=== PATIENT | male | born 1950 | race Caucasian/White ===

== ENCOUNTER 2016-11-03 12:38 | Inpatient (IN) | payer BC, MEDICARE ==
--- NOTE | ~2016-11-03 | CO ---
Unit #: [id number] #: [id number] Patient: GABRIEL JOHNSON [id number] [facility] [address] [place] [address] [id number] I MR#: [id number] NAME: GABRIEL JOHNSON. ROOM: 83 Age: 66 Sex: M Admission Date: 11/03/2016 : 1950 Attending Physician: Miguel Vidal M.D. Primary Care Physician: Pearl Estrella M.D. Consultation Date: 11/03/2016 CONSULTATION REPORT SUBJECTIVE Gabriel is a 66-year-old, admitted because of his polysubstance abuse. He was seen for his admission H and P on 11/03/2016. He is medical problems to include COPD and high blood pressure were outlined and discussed. Please see H and P dated 11/03/2016. Dictated by... Shu Benítez P.A.-C. for Gissel Elizalde/jono TD: 11/03/2016 18:53 JOB #: [id number] CONSULTATION REPORT Page 1 of 1 X Shu Benítez CONSULTATION REPORT
--- NOTE | ~2016-11-03 | PA ---
Unit #: [id number] #: [id number] Patient: BRENNAN JOHNSON [id number] [place] [address] [id number] I MR#: [id number] NAME: BRENNAN JOHNSON. ROOM: P183 Age: 66 Sex: M Admission Date: 11/03/2016 : 1950 Date of Assessment: 11/04/2016 Attending Physician: Miguel Vidal M.D. Admitting Physician: Miguel Vidal M.D. Primary Care Physician: Pearl Estrella M.D. PSYCHIATRIC ASSESSMENT LOCATION [facility] [address], room #183, bed 1. DATE OF SERVICE 11/04/2016. INFORMANTS The patient and chart, both seem reliable. CHIEF COMPLAINT "I have to stop drinking and using drugs." HISTORY OF PRESENTING ILLNESS This is a 66-year-old white male, admitted with issues of severe alcohol dependency and heroin dependency. The patient apparently has been drinking daily for "many many years" with no period of lasting sobriety for several years. The patient has never been to detox before, but he is reporting that he is becoming more and more depressed, isolative, and is seeing a decrease in his overall functioning because of the substance use. He reports drinking over 12 beers a day as well as 40 dollars worth of heroin a day. He does not indicate IV versus snorting. The patient reports feeling depressed at this time as well as poor energy, but is motivated for treatment because of himself and his . He has not had any previous psychiatric care or CD treatment. Denies any active SI or anything of that nature at this time. PAST PSYCHIATRIC HISTORY Nothing of significance in terms of treatment, inpatient or out. No history of medications. No history of overall intervention. FAMILY HISTORY Noncontributory. SOCIAL HISTORY The patient lives at home with his . He does have grown children. He is retired . PAST MEDICAL HISTORY The patient has a history of hypertension that has not been treated recently. MEDICATION HISTORY None. Unit #: [id number] #: [id number] Patient: BRENNAN JOHNSON ALLERGIES Included cefaclor which caused rash. SUBSTANCE ABUSE HISTORY As noted above. No previous CD treatment, inpatient or out. No history of overt detox noted. MENTAL STATUS EXAMINATION General appearance, he is a limitedly groomed white male, appears older than stated age, but good eye contact and responsiveness. Speech was clear and coherent. Normal prosody. Mood was "depressed" with a blunted affect. Thought process and content were fairly organized and linear. No overt evidence of psychosis. No active SI or HI. The patient's memory was grossly intact. Associations were normal. Alert and oriented x4. Cognitive function was at baseline. Insight and judgment are poor with substance use. ASSETS Support through his and family. LIABILITIES No previous detox exposure, chronic long-term substance abuse of more than one substance and age. ADMITTING DIAGNOSES 1. Alcohol dependency. 2. Opioid dependency. 3. Substance-induced mood disorder. TREATMENT PLAN/PSYCHIATRIC PLAN Include continuing the patient's admission for safety and stabilization for ongoing detox needs, primarily from alcohol, secondary to opioids. The patient has been placed on CIWA protocol appropriately as well as being seen by nurse practitioner for evaluation of hypertension related issues and medication to be started after discretion. Multiple lab tests are still pending. The patient is being monitored in a controlled safe monitor daily for changes in situation and adjust accordingly. TREATMENT GOALS Resolution of detox symptoms in a safe controlled manner with discharge planning and requiring followup care with CD counseling as well as psychiatric care if necessary. ESTIMATED LENGTH OF STAY Approximately 4 days depending on the patient's progress and response to treatment. Dictated by... Miguel Vidal M.D. DIANN/jono TD: 11/04/2016 10:05 JOB #: [id number] Unit #: [id number] #: [id number] Patient: BRENNAN JOHNSON PSYCHIATRIC ASSESSMENT Page 1 of 1 X Miguel Vidal MD X PSYCHIATRIC ASSESSMENT
--- NOTE | ~2016-11-03 | HP ---
Unit #: [id number] #: [id number] Patient: GABRIEL JOHNSON [id number] [place] [address] [id number] I MR#: [id number] NAME: GABRIEL JOHNSON. ROOM: P183 Age: 66 Sex: M Admission Date: 11/03/2016 : 1950 Attending Physician: Miguel Vidal M.D. Admitting Physician: Miguel Vidal M.D. Primary Care Physician: Pearl Estrella M.D. HISTORY AND PHYSICAL HISTORY OF PRESENT ILLNESS Gabriel is a 66 year old admitted because of his polysubstance abuse which includes alcohol and heroin. PAST MEDICAL HISTORY 1. Long history of alcohol abuse. 2. History of opioid abuse to include snorting heroin. 3. COPD. 4. High blood pressure. PAST SURGICAL HISTORY Low back. ALLERGIES Ceclor. SOCIAL HISTORY He smokes 1-1/2 packs per day. Drinks at least 12 beers on a daily basis and admits to a long history of opioid abuse to include snorting heroin. FAMILY HISTORY Medically noncontributory. REVIEW OF SYSTEMS CONSTITUTIONAL: No fever or chills. HEENT: Denies any sore throat, ear pain or runny nose. CARDIOVASCULAR: Denies chest pain, irregular heart rhythm or palpitations. LUNGS: He has used an inhaler but it has been years. He has no complaints of difficulty breathing at this time. GASTROINTESTINAL: Denies nausea, vomiting, diarrhea or chronic constipation. ENDOCRINE: Denies history of increased thirst or urination. No recent significant weight loss or gain. GENITOURINARY: Denies dysuria, frequency, or hematuria. SKIN: Denies any rashes. HEMATOLOGIC: Denies history of increased bleeding or bruising. MUSCULOSKELETAL: Denies any hot, swollen joints. No generalized muscle pain. NEUROLOGIC: Denies problems with vision or speech. No frequent, severe headaches. No numbness, tingling or weakness in any extremities. Denies loss of bladder or bowel control. CURRENT MEDICATIONS Unit #: [id number] #: [id number] Patient: GABRIEL JOHNSON Detox protocol. PHYSICAL EXAMINATION GENERAL: Alert, well-nourished, in no apparent distress. VITAL SIGNS: Blood pressure 162/100, heart rate 84, respirations 16, temperature 98.6. WEIGHT: 135. HEIGHT: 5 feet 7 inches. SKIN: Warm and dry without rash or lesion. HEENT: Normocephalic. TMs not viewed. Oral and nasal passages clear. Conjunctivae clear. PERRLA. EOMs intact. NECK: Supple without lymphadenopathy or thyromegaly. HEART: Regular rate and rhythm without murmur. LUNGS: Clear. ABDOMEN: Soft, nontender. : Not done. EXTREMITIES: No evidence of cyanosis, clubbing or edema. Moves all without focal deficit. NEUROLOGICAL: Grossly within normal limits. Cranial Nerves: II: Visual romano are intact. III, IV AND : Extraocular movements are intact. Pupils are equal, round and reactive to light. V: Facial sensation is grossly normal. VII: Facial movements and expression are normal. VIII: Auditory acuity grossly intact. IX, X: Uvula is midline. Phonation is normal. XI: Patient shrugs shoulders and turns head normally. XII: Tongue protrudes in the midline. Sensory and Motor Function: Sensory and motor sensation is grossly normal. Motor: moves all extremities well. Coordination: Gait is normal. Deep Tendon Reflexes: Intact. IMPRESSION 1. Psychiatric admission. 2. History of alcohol abuse. 3. History of opioid abuse to include heroin. 4. Chronic obstructive pulmonary disease, stable. 5. High blood pressure, not controlled on admission. He is admitted on no blood pressure medications. RECOMMENDATIONS PSYCHIATRIC: Per psychiatrist. MEDICAL: 1. See no contraindications to participate in facility's activities. 2. Detox per protocol. 3. No inhalers are necessary at this time. His COPD is stable. 4. Monitor blood pressure q. shift. Start Norvasc 5 mg 1 p.o. daily. First dose now. He knows to follow up with PCP. MEDICAL PROGNOSIS Good. MEDICAL CONDITION Stable. Dictated by... Unit #: [id number] #: [id number] Patient: GABRIEL JOHNSON Junior IbrahimAThanh-Allan. for Gissel Elizalde/yuli TD: 11/03/2016 18:39 JOB #: [id number] HISTORY AND PHYSICAL Page 1 of 1 X Shu Benítez HISTORY AND PHYSICAL
--- NOTE | ~2016-11-03 | DS ---
Unit #: [id number] #: [id number] Patient: BRENNAN JOHNSON [id number] [place] [address] [id number] I MR#: [id number] NAME: BRENNAN JOHNSON. ROOM: [facility] Age: 66 Sex: M Admission Date: 11/03/2016 : 1950 Discharge Date: 11/05/2016 Attending Physician: Miguel Vidal M.D. Primary Care Physician: Pearl Estrella M.D. DISCHARGE SUMMARY REASON FOR ADMISSION With alcohol and heroin dependency with suspected withdrawal. DIAGNOSTIC STUDIES Pertinent laboratory data included a CMP that showed a BUN less than 5, creatinine 0.5, otherwise normal with sodium slightly low at 134, chloride 99. No other abnormalities noted. TSH normal at 0.44. Free T4 normal at 0.89. CBC showed hemoglobin of 16.2 and MCV of 101.0, but otherwise within normal parameters. RPR was noted to be nonreactive. Urine tox upon admission was positive for opiates. Urinalysis was within normal parameters with the exception of 0.2 urobilinogen. No other tests performed. HOSPITAL COURSE Patient was admitted for safety and stabilization for longstanding issues with significant alcohol and opiate dependency. Patient has been drinking for several years, as well as using heroin on a daily basis for many years as well. The patient was placed on appropriate detox protocols and was only in the hospital a very brief. He reported having some concerns about withdrawal but apparently did not feel that he was manifesting any symptoms and on November 05, he decided he wanted to be discharged. Staff reported that he had been pleasant and cooperative and no other acute complaints. Vitals signs appeared to be within normal range with the exception of slightly elevated blood pressure. Patient was seen by nurse practitioner as part of a med consultation and he was restarted on Norvasc. Apparently he has been on blood pressure medication in the past but has not been compliant with it. He tolerated being restarted and he was discharged one it. The plan at the discharge was the patient was not having any acute signs of detox. He seems to be clean, coherent and appropriate. He was denying any SI or HI. Plan was for him to go home with the family with possible follow at [facility] in [place] should he choose that and that was noted by him on his own. It is felt patient didn't meet criteria to be maintained in the hospital involuntarily so he was allowed to be discharged home. DISCHARGE DIAGNOSES 1. Alcohol dependency with withdrawal, uncomplicated. 2. Opiate dependency withdrawal, uncomplicated. 3. Hypertension. FOLLOWUP CARE Discharge followup will be with family and [facility] in [place]. Unit #: [id number] #: [id number] Patient: BRENNAN JOHNSON He needs to follow through. DISCHARGE MEDICATIONS Norvasc 5 mg daily for hypertension. Additional followup care will be provided through PCP. CONDITION AT DISCHARGE Fairly unchanged. PROGNOSIS Guarded given the patient's desire to leave before manifesting symptoms. DIET AND ACTIVITY Diet is heart healthy. Activity is as tolerated with sobriety encouraged. Dictated by... Miguel Viadl M.D. DIANN/cale TD: 11/05/2016 10:55 JOB #: [id number] DISCHARGE SUMMARY Page 1 of 1 X Miguel Vidal MD X DISCHARGE SUMMARY
[~2016-11-03 12:38] MED LIST: AMLODIPINE BESYL5 MG PO; CITALOPRAM HBR10 MG PO; LISINOPRIL10 MG PO; MULTI VITAMIN1 EACH PO; OMEPRAZOLE20 M2 PO; OMEPRAZOLE40 MG PO; OXYCONTIN PO; PERCOCET 7.5-31 EACH PO
[2016-11-04 09:39] LABS: BASOPHIL# 0.1 X10e3 (0-0.3); BASOPHIL% 0.9 % (0-2.5); EOSINOPHIL# 0.4 X10e3 (0-0.7); EOSINOPHIL% 5.4 % (0.0-7.0); HEMATOCRIT 48.3 % (38.0-50.0); HEMOGLOBIN 16.2 gm/dL (13.0-16.0); LYMPHOCYTE# 1.7 X10e3 (1.0-3.5); LYMPHOCYTE% 23.4 % (17.0-45.0); MEAN CORPUSCULAR HEMOGLOBIN 33.9 PG (28-34); MEAN CORPUSCULAR HGB CONC 33.6 g/dL (30-36); MEAN PLATELET VOLUME 7.8 FL (6.5-11.5); MONOCYTE# 1.4 X10e3 (0-1.0); MONOCYTE% 19.7 % (3.0-12.0); NEUTROPHIL# 3.7 X10e3 (1.5-7.1); NEUTROPHIL% 50.6 % (40-75); PLATELET COUNT 250 X10e3 (140-420); RED BLOOD COUNT 4.78 X10e (3.90-5.60); RED CELL DISTRIBUTION WIDTH 13.2 % (11.0-15.5); WHITE BLOOD COUNT 7.3 X10e3 (4.0-10.5)
[2016-11-04 09:42] LABS: DIFF IND NO
[2016-11-04 09:46] LABS: URINE APPEARANCE CLEAR; URINE BILIRUBIN NEG (NEG); URINE BLOOD NEG (NEG); URINE COLOR YELLOW; URINE GLUCOSE NEG (NEG); URINE KETONE NEG (NEG); URINE LEUKOCYTE ESTERASE NEG (NEG); URINE NITRATE NEG (NEG); URINE PH 6.5 (5-8); URINE PROTEIN NEG (NEG); URINE SPECIFIC GRAVITY 1.003 (1.003-1.035); URINE UROBILINOGEN 0.2 MG/DL (NEG)
[2016-11-04 09:58] LABS: THYROID STIMULATING HORMONE 0.44 uIU/ml (0.34-5.60)
[2016-11-04 10:02] LABS: AMPHETAMINE NEG (NEG); BARBITURATES NEG (NEG); BENZODIAZEPINES NEG (NEG); COCAINE NEG (NEG); MARIJUANA NEG (NEG); OPIATES POS (NEG); TRICYCLIC ANTIDEPRESSANTS NEG (NEG); U METHADONE NEG (NEG)
[2016-11-04 10:05] LABS: FREE THYROXIN (T4) 0.89 ng/dL (0.58-1.64)
[2016-11-04 10:59] LABS: ALBUMIN SERUM 4.1 g/dL (3.5-5.0); ALKALINE PHOSPHATASE 39 U/L (32-92); ALT (SGPT) 15 U/L (10-40); AST (SGOT) 21 U/L (10-42); BILIRUBIN,TOTAL 0.6 mg/dL (0.2-2.0); BLOOD UREA NITROGEN <5 mg/dL (9-23); CALCIUM SERUM 9.4 mg/dL (8.4-10.2); CARBON DIOXIDE 24 mmol/L (22-31); CHLORIDE 99 mmol/L (100-111); CREATININE SERUM 0.5 mg/dL (0.6-1.4); GLOM FILT RATE Estimated 113.8 mL/min (>60); GLUCOSE FASTING 94 mg/dL (70-110); PROTEIN TOTAL SERUM 6.8 g/dL (6.0-8.3); SODIUM 134 mmol/L (135-145)
== END 2016-11-05 09:34 | DRG 897 ==
LOC: P1E 12:38
PROVIDERS: Psychiatry & Neurology Psychiatry
PROC: HZ2ZZZZ Detoxification Services for Substance Abuse Treatment (ICD-10-PCS; principal; 2016-11-03)
DX: F11.23 Opioid dependence with withdrawal (principal); J44.9 Chronic obstructive pulmonary disease, unspecified; F10.230 Alcohol dependence with withdrawal, uncomplicated; F11.24 Opioid dependence with opioid-induced mood disorder; F10.24 Alcohol dependence with alcohol-induced mood disorder; I10 Essential (primary) hypertension; Z88.1 Allergy status to other antibiotic agents; F17.210 Nicotine dependence, cigarettes, uncomplicated
CPT/HCPCS: 80053; 80307; 81003; 84439; 84443; 85025; 86592

== ENCOUNTER → 2017-02-01 | Outpatient (CLI) | payer BC, MEDICARE ==
--- NOTE | ~2017-02-01 | CT55 ---
[facility] A Service of [facility] RADIOLOGY TEXT RESULTS PATIENT: BRENNAN JOHNSON LOCATION: [facility] : 52 UNIT #: [id number] AGE: [address]: Pearl Estrella MD SEX: M ORDER DR: [id number] [facility] [address] [place], [place] [address] [id number] O MR#: [id number] [facility] #: [id number] NAME: BRENNAN JOHNSON. : 1950 SEX: M STUDY DATE/TIME: 02/01/2017 10:16 UNIT: [facility] ROOM: STUDY DESCRIPTION: CT Chest W Con Attending Physician: Pearl Estrella M.D. Referring Physician: Pearl Estrella M.D. Ordering Physician: Pearl Estrella M.D. Primary Care Physician: Pearl Estrella M.D. MEDICAL IMAGING REPORT This report is preliminary unless electronic signature is present EXAM CT of the chest with contrast. INDICATIONS Right lower lobe lung mass identified on the chest x-ray performed September 05 2016. Patient subsequently had a CT of the chest performed the same day which did not show any corresponding abnormality. TECHNIQUE Axial CT images were made from the thoracic inlet through the dome of the diaphragm following administration of the contrast material. This CT exam was performed with one or more of the following radiation dose reduction techniques: automatic exposure control, adjustment of mA and/or kV according to patient size, and iterative reconstruction. FINDINGS Background emphysematous changes are seen. Granulomatous calcifications are seen within the left upper lobe. No suspicious pulmonary nodules or masses are identified. The thyroid gland, trachea and esophagus appear unremarkable. There is no pleural or pericardial effusion. Proximal descending thoracic aorta is dilated measuring 3.1 cm, although it tapers to normal caliber. No suspicious pulmonary nodules or masses are seen. There are some coronary artery calcifications. Left adrenal adenoma is suspected and appears unchanged when compared to the prior study. I do think the patient has diffuse hepatic steatosis. Although I do not see any focal hepatic lesions. There is stable dilatation of the common bile duct measuring up to about a cm in size. No pancreatic ductal dilatation is seen. There is atherosclerotic involvement of the abdominal aorta. 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 Review of bony windows does not demonstrate any aggressive osseous STS. [facility] A Service of [facility] RADIOLOGY TEXT RESULTS PATIENT: BRENNAN JOHNSON LOCATION: [facility] : 52 UNIT #: [id number] AGE: [address]: Pearl Estrella MD SEX: M ORDER DR: abnormalities. IMPRESSION 1. Stable calcified granulomatous changes noted at the left lung apex. No suspicious pulmonary nodules or masses are seen. 2. Aneurysmal dilatation proximal descending thoracic aorta measuring up to 3.1 cm. 3. Some dilatation of the common bile duct measuring up to about a cm. This is unchanged when compared with September 2016 examination. Correlation with liver function tests is suggested. No pancreatic ductal dilatation is seen. Please see the body of the report for any other additional incidental findings. Dictated by... Bev Francois M.D. THIS IS AN ELECTRONICALLY VERIFIED REPORT Bev Francois M.D. at 02/04/2017 8:12 AM DAVID/mary TD: 02/02/2017 10:51 JOB #: [id number] MEDICAL IMAGING REPORT Page 1 of 1 COPY
[2017-02-01 11:41] LABS: POC - CREATININE 0.73 mg/dL (0.64-1.27); POC - GFR >60.0 mL/min (>60)
== END | disposition home or self-care (01) ==
LOC: CCAT 09:16
PROVIDERS: Internal Medicine
DX: R91.8 Other nonspecific abnormal finding of lung field (principal); J84.10 Pulmonary fibrosis, unspecified; I77.810 Thoracic aortic ectasia
CPT/HCPCS: 71260; 82565; Q9967